=== PATIENT | female | born 1950 ===

== ENCOUNTER 2017-09-25 08:43 | Outpatient (CLI) | payer OTHER ==
[~2017-09-25] VITALS: Ht 152.4 cm; Wt 59.4 kg
== END 2017-09-25 09:00 | disposition home or self-care (01) ==
LOC: OFIC 805 08:43
DX: H90.41 Sensorineural hearing loss, unilateral, right ear, with unrestricted hearing on the contralateral side (principal); H93.11 Tinnitus, right ear

== ENCOUNTER 2017-11-13 07:27 | Outpatient (CLI) | payer OTHER ==
[~2017-11-13] VITALS: Ht 152.4 cm; Wt 59.4 kg
== END 2017-11-13 07:50 | disposition home or self-care (01) ==
LOC: OFIC 805 07:27
DX: H93.11 Tinnitus, right ear (principal); H90.41 Sensorineural hearing loss, unilateral, right ear, with unrestricted hearing on the contralateral side